=== PATIENT | male | born 1955 | race Caucasian/White ===

== ENCOUNTER 2018-10-25 08:56 | Outpatient (CLI) | payer MEDICARE ==
--- NOTE | 2018-10-25 11:07 | MMO ---
BILATERAL SCREENING MAMMOGRAM: Comparison: None available. Therefore, the current study will be treated as a baseline mammogram. Technique: CC and MLO views of both breasts are submitted for interpretation. This study is interpret ed with the assistance of computer aided detection. FINDINGS: Breasts are composed of scattered fibroglandular tissue. Bilaterally, no suspicious dominant mass, ar chitectural distortion or suspicious calcification. Bilateral benign appearing calcification present. IMPRESSION: BIRADS 2 - benign findings. RECOMMENDATION: Annual mammography. POS: [facility]
== END 2018-10-25 08:57 | disposition home or self-care (01) ==
LOC: SCSMAMMO 08:56
PROVIDERS: ATTEND Family Medicine
DX: Z12.31 Encounter for screening mammogram for malignant neoplasm of breast (principal)
CPT/HCPCS: 77067